=== PATIENT | female | born 1970 | race Asian ===

== ENCOUNTER 2019-04-15 12:17 | Emergency (ER) | payer OTHER ==
[~2019-04-15] VITALS: Ht 157.5 cm; Wt 93.0 kg
[2019-04-15] MEDS ORDERED: LIPITOR40 MG PO (12:41)
[2019-04-15] MEDS ORDERED: ENOX40IN SC (12:42)
[2019-04-15] MEDS ORDERED: METO25TA2 PO (12:42)
[2019-04-15] MEDS ORDERED: PANTOPRAZOLE SO40 M1 PO (12:44)
[2019-04-15] MEDS ORDERED: MULTIVITAMI1 PO (12:45)
[2019-04-15] MEDS ORDERED: HYDROXYZINE HYD50 MG PO (12:46)
[2019-04-15] MEDS ORDERED: CITALOPRAM40 M1 PO (12:46)
[2019-04-15 13:19] LABS: PLATELET COUNT 329 K/uL (152-353)
[2019-04-15 13:30] VITALS: BP 127/80; TEMP 97.8
== END 2019-04-15 13:30 | disposition home or self-care (01) ==
LOC: ED 12:17
PROVIDERS: Emergency Medicine
DX: D64.9 Anemia, unspecified (principal)
CPT/HCPCS: 85027; 93005; 99282

== ENCOUNTER 2019-07-12 22:47 | Observation (INO) | payer OTHER ==
[~2019-07-12] VITALS: Ht 157.5 cm; Wt 98.0 kg
[~2019-07-12 22:47] MED LIST: CITALOPRAM40 M1 PO; ENOX40IN SC; HYDROXYZINE HYD50 MG PO; LIPITOR40 MG PO; METO25TA2 PO; MULTIVITAMI1 PO; PANTOPRAZOLE SO40 M1 PO
[2019-07-12 22:50] VITALS: BP 159/80; TEMP 98.3
[2019-07-12 23:20] LABS: PLATELET COUNT 219 K/uL (152-353)
[2019-07-12 23:32] LABS: POTASSIUM 3.2 mmol/L (3.6-5.2); SODIUM 136 mmol/L (136-145)
[2019-07-12 23:56] LABS: PARTIAL THROMBOPLASTIN TIME 24.9 SECONDS (24.5-33.6)
[2019-07-13 01:26] VITALS: BP 130/69; TEMP 98.1; Ht 157.5 cm; Wt 98.0 kg
[2019-07-13 04:00] VITALS: BP 106/57; TEMP 98.2
[2019-07-13 08:00] VITALS: BP 113/70; TEMP 98.7
[2019-07-13 12:00] VITALS: BP 117/72; TEMP 98.8
[2019-07-13 16:00] VITALS: BP 122/68; TEMP 98.6
== END 2019-07-13 18:01 | disposition short-term general hospital (02) ==
LOC: ED 22:47 → MED/SURG 07-13 00:37
PROVIDERS: Hospitalist; ADMIT Internal Medicine
DX: R07.89 Other chest pain (principal); I25.2 Old myocardial infarction; E78.00 Pure hypercholesterolemia, unspecified; I10 Essential (primary) hypertension; K21.9 Gastro-esophageal reflux disease without esophagitis; I25.10 Atherosclerotic heart disease of native coronary artery without angina pectoris; E66.8 Other obesity; I82.499 Acute embolism and thrombosis of other specified deep vein of unspecified lower extremity
CPT/HCPCS: 36415; 80053; 82550; 82553; 83880; 84484; 85027; 85379; 85610; 85730; 93005; 94760; 96374; 96375; 96376; 99220; 99284; G0378; J1170; J1650; J2270; J2405

== ENCOUNTER 2019-07-13 18:12 | Outpatient (CLI) | payer OTHER | END 2019-07-13 18:43 | disposition short-term general hospital (02) | LOC: AMB 18:12 | DX: R07.9 Chest pain, unspecified (principal); I25.2 Old myocardial infarction; I10 Essential (primary) hypertension; Z86.718 Personal history of other venous thrombosis and embolism; K21.9 Gastro-esophageal reflux disease without esophagitis; E78.00 Pure hypercholesterolemia, unspecified | CPT/HCPCS: A0425; A0427 ==

== ENCOUNTER 2019-08-20 10:21 | Emergency (ER) | payer BC ==
[~2019-08-20] VITALS: Ht 157.5 cm; Wt 90.7 kg
[2019-08-20 10:26] VITALS: TEMP 97.5
[2019-08-20 11:32] LABS: PLATELET COUNT 218 K/uL (152-353)
[2019-08-20 11:36] LABS: POTASSIUM 3.8 mmol/L (3.6-5.2)
[2019-08-20 12:09] VITALS: BP 141/93
== END 2019-08-20 12:10 | disposition home or self-care (01) ==
LOC: ED 10:21
PROVIDERS: Family Medicine
DX: A08.39 Other viral enteritis (principal); R51 Headache
CPT/HCPCS: 80053; 81000; 82150; 83690; 85027; 99283

== ENCOUNTER 2019-09-03 17:33 | Emergency (ER) | payer BC ==
[~2019-09-03] VITALS: Ht 157.5 cm; Wt 90.7 kg
[2019-09-03 17:44] VITALS: TEMP 97.3
[2019-09-03 18:44] LABS: PLATELET COUNT 267 K/uL (152-353)
[2019-09-03 19:39] LABS: POTASSIUM 3.4 mmol/L (3.6-5.2)
[2019-09-03 20:02] VITALS: BP 148/97
== END 2019-09-03 20:13 | disposition home or self-care (01) ==
LOC: ED 17:33
PROVIDERS: Family Medicine
DX: R11.2 Nausea with vomiting, unspecified (principal); E87.6 Hypokalemia
CPT/HCPCS: 80053; 81000; 85027; 96374; 99283; 99284; J2405

== ENCOUNTER 2019-10-14 20:09 | Emergency (ER) | payer BC ==
[~2019-10-14] VITALS: Ht 157.5 cm; Wt 97.1 kg
[2019-10-14 23:44] VITALS: BP 119/72; TEMP 98.4
== END 2019-10-14 23:48 | disposition home or self-care (01) ==
LOC: ED 20:09
DX: S46.811A Strain of other muscles, fascia and tendons at shoulder and upper arm level, right arm, initial encounter (principal); W01.0XXA Fall on same level from slipping, tripping and stumbling without subsequent striking against object, initial encounter; Y92.89 Other specified places as the place of occurrence of the external cause
CPT/HCPCS: 96372; 99283; J1885

== ENCOUNTER 2020-04-25 12:23 | Outpatient (CLI) | payer OTHER | END 2020-04-25 22:29 | disposition home or self-care (01) | LOC: US 12:23 | PROVIDERS: ATTEND Specialist | DX: M79.604 Pain in right leg (principal); Z86.718 Personal history of other venous thrombosis and embolism ==

== ENCOUNTER 2020-06-03 06:53 | Emergency (ER) | payer OTHER ==
[~2020-06-03] VITALS: Ht 157.5 cm; Wt 97.1 kg
[2020-06-03 06:58] VITALS: BP 119/79; TEMP 97.7
== END 2020-06-03 09:15 | disposition still patient (30) ==
LOC: ED 06:53
DX: M54.89 Other dorsalgia (principal); G89.29 Other chronic pain; M54.31 Sciatica, right side
CPT/HCPCS: 81000; 81025; 96372; 99283; J1885

== ENCOUNTER → 2020-07-05 09:24 | Outpatient (CLI) | payer OTHER | END | disposition home or self-care (01) | LOC: MAMMO 09:24 | PROVIDERS: ATTEND Nurse Practitioner Family | DX: Z12.31 Encounter for screening mammogram for malignant neoplasm of breast (principal) ==

== ENCOUNTER 2020-09-07 08:41 | Outpatient (CLI) | payer OTHER | END 2020-09-07 20:59 | disposition home or self-care (01) | LOC: RESP 08:41 | PROVIDERS: ATTEND Specialist | DX: R07.9 Chest pain, unspecified (principal) ==

== ENCOUNTER 2021-06-24 15:19 | Emergency (ER) | payer OTHER ==
[~2021-06-24] VITALS: Ht 157.5 cm; Wt 97.1 kg
[2021-06-24 15:28] VITALS: BP 135/73; TEMP 97.6
== END 2021-06-24 15:47 | disposition home or self-care (01) ==
LOC: ED 15:19
DX: M25.511 Pain in right shoulder (principal)
CPT/HCPCS: 99282